=== PATIENT | male | born 1960 | race Caucasian/White ===

== ENCOUNTER 2018-11-08 17:05 | Emergency (ER) | payer BC ==
[~2018-11-08] VITALS: Ht 157.5 cm; Wt 85.0 kg
[~2018-11-08 17:05] MED LIST: ASPI-481; BP MED; LOSA25TA2
[2018-11-08 17:39] VITALS: Ht 157.5 cm; Wt 85.0 kg
--- NOTE | 2018-11-08 18:07 | ERD ---
ER Documentation Chief Complaint Chief Complaint chest pain, dizzy, double vision started norvas thursday HPI 58-year-old man complains of diplopia and blurry vision beginning Thursday (5 days ago) suddenly while driving. Patient does have a history of hypertension but was recently started on low-dose amlodipine, which he states he has been using as prescribed. He states when he tries moving his left eye outward he has worsening diplopia and has been having to cover his left eye to see properly. He denies headache or blurry vision, no slurred speech, no weakness in his arms or legs, denies chest pain or shortness of breath. ROS All systems reviewed and are negative except as per history of present illness. Medications Home Meds Reported Medications Aspirin (Baby Aspirin) 81 Mg Tab.chew 06/06/09 [Bp Med] No Conflict Check 06/06/09 Losartan Potassium* (Cozaar*) 25 Mg Tablet 06/06/09 Allergies Allergies: Coded Allergies: No Known Drug Allergies (Verified Allergy, Mild, 06/06/09) PMhx/Soc Hypertension History of Surgery: No Hx Neurological Disorder: No Hx Respiratory Disorders: No Hx Cardiac Disorders: No Hx Miscellaneous Medical Probl: Yes (HTN) Hx Alcohol Use: No Hx Substance Use: No Hx Tobacco Use: Yes (1PK/DAY) FmHx Family History: No diabetes Physical Exam Vitals Vital Signs Date Temp Pulse Resp B/P (MAP) Pulse Ox O2 O2 Flow FiO2 Time Delivery Rate 11/08/18 98.2 92 18 188/104 95 17:39 (132) Physical Exam Const: No acute distress, afebrile HEENT: Normocephalic atraumatic, no goiter, pink conjunctive a Resp: Clear to auscultation bilaterally Cardio: Regular rate and rhythm, no murmurs Abd: Soft, non tender, non distended. Normal bowel sounds Neur: Awake and alert x3, no facial asymmetry, no pronator drift. Patient has a left cranial nerve 6 palsy and cannot abduct the left eye although abduction of both eyes is preserved Psych: Normal Mood and Affect Result Diagram: 11/08/18185511/08/181855 Results 24 hrs Laboratory Tests Test 11/08/18 18:55 11/08/18 18:56 Prothrombin Time 12.2 Sec Prothrombin Time Ratio 1.0 INR International Normalized Ratio 0.89 Activated Partial Thromboplast Time 26.7 Sec White Blood Count 8.1 10^3/ul Red Blood Count 5.51 10^6/ul Hemoglobin 16.6 g/dl Hematocrit 49.3 % Mean Corpuscular Volume 89.5 fl Mean Corpuscular Hemoglobin 30.1 pg Mean Corpuscular Hemoglobin Concent 33.7 g/dl Red Cell Distribution Width 13.7 % Platelet Count 279 10^3/UL Mean Platelet Volume 10.3 fl Immature Granulocytes % 0.100 % Neutrophils % 42.1 % Lymphocytes % 44.2 % Monocytes % 9.8 % Eosinophils % 3.3 % Basophils % 0.5 % Nucleated Red Blood Cells % 0.0 /100WBC Immature Granulocytes # 0.010 10^3/ul Neutrophils # 3.4 10^3/ul Lymphocytes # 3.6 10^3/ul Monocytes # 0.8 10^3/ul Eosinophils # 0.3 10^3/ul Basophils # 0.0 10^3/ul Nucleated Red Blood Cells # 0.0 10^3/ul Sodium Level 142 mmol/L Potassium Level 4.2 mmol/L Chloride Level 105 mmol/L Carbon Dioxide Level 26 mmol/L Anion Gap 11 Blood Urea Nitrogen 12 mg/dl Creatinine 0.58 mg/dl Est Glomerular Filtrat Rate mL/min > 60 mL/min Glucose Level 103 mg/dl Calcium Level 9.5 mg/dl Total Bilirubin 0.5 mg/dl Direct Bilirubin 0.00 mg/dl Indirect Bilirubin 0.5 mg/dl Aspartate Amino Transf (AST/SGOT) 27 IU/L Alanine Aminotransferase (ALT/SGPT) 34 IU/L Alkaline Phosphatase 86 IU/L Troponin I < 0.012 ng/ml Total Protein 8.1 g/dl Albumin 4.5 g/dl Globulin 3.60 g/dl Albumin/Globulin Ratio 1.25 Lipase 78 U/L Ethyl Alcohol Level < 10.0 mg/dl Current Medications Medications Dose Sig/D[place]ton Start Time Status Last (Trade) Ordered Route PRN Stop Time Admin Dose Reason Admin Sodium 1,000 ml @ Q1H STAT 11/08/18 DC 11/08/18 Chloride 1,000 mls/hr IV 18:27 18:52 11/08/18 19:26 Enalaprilat 1.25 mg ONCE ONCE 11/08/18 DC 6/17/19 (Vasotec Iv) IV 18:30 19:00 11/08/18 18:31 IV Flush 10 ml STK-MED 11/08/18 DC 11/08/18 (NS 10 ml) ONCE .ROUTE 19:36 19:48 11/08/18 19:37 Sodium 100 ml @ ud STK-MED 11/08/18 DC 11/08/18 Chloride ONCE .ROUTE 19:36 19:48 11/08/18 19:37 Iohexol 100 ml @ ud STK-MED 11/08/18 DC 11/08/18 ONCE .ROUTE 19:36 19:49 11/08/18 19:37 Lorazepam 0.5 mg ONCE ONCE 11/08/18 (Ativan) IV 22:00 11/08/18 22:01 Procedures/MDM IV line was established patient was placed on teletypesetter monitor rhythm strip revealed a sinus rhythm at about 90 bpm with upright P and T waves. Patient was afebrile EKG performed, read by me: 93 bpm, normal sinus rhythm, normal axis, no acute ST segment changes, narrow QRS complex, with good R-wave progression in precordial leads. I administered 1 L normal saline IV and enalapril 1.25 mg IV x1 for hypertension. Chest x-ray was deferred as patient just had one as an outpatient a couple days ago. CT scan of the brain was performed was negative for bleed mass or shift CTA of the cerebrum and neck, IMPRESSION: CTA Head 1. No arterial thrombus or vessel occlusion. 2. Mild to moderate right supraclinoid carotid artery stenosis. 3. No intracranial aneurysm. CTA Neck 1. There is 40% right internal carotid artery stenosis by NASCET criteria. 2. No significant left internal carotid artery stenosis by NASCET criteria. CBC and electrolytes were normal, liver function tests were normal, troponin was negative I administered aspirin 324 mg p.o. for neuro protective measures. Patient will be admitted to telemetry setting for possible stroke or cranial nerve problem. Patient will also require neurology consultation. Departure Diagnosis: Primary Impression: Cranial nerve palsy Laterality: left Qualified Codes: H49.22 - Sixth [abducent] nerve palsy, left eye Additional Impressions: Stroke CVA mechanism: unspecified Qualified Codes: I63.9 - Cerebral infarction, unspecified HTN (hypertension) Hypertension type: essential hypertension Qualified Codes: I10 - Essential (primary) hypertension Condition: Fair ZOHRABIAN,JULIAN MD Nov 08, 2018 18:07
[2018-11-08] MEDS ORDERED: SOD CHLORIDE 0.9% 1,000 ML IV STA (18:27)
[2018-11-08] MEDS ORDERED: ENALAPRILAT 1.25 MG INJ IV ONE (18:30)
[2018-11-08] MEDS ORDERED: SOD CHLORIDE 0.9% 100 ML ONE (19:36)
[2018-11-08] MEDS ORDERED: IOHEXOL 100 ML ONE (19:36)
[2018-11-08] MEDS ORDERED: ASPIRIN 81 MG TAB PO ONE (22:00)
[2018-11-08] MEDS ORDERED: LORAZEPAM 2 MG INJ IV ONE (22:00)
[2018-11-08 22:47] VITALS: BP 179/84; PULSE 85; RESP 18
--- NOTE | 2018-11-08 23:01 | QN ---
Documentation Comment I came to see the patient but was informed by the ED physician that the patient left against medical advice. Patient signed out AMA. I was not able to see the patient as he left AMA. LOU DAVIS Nov 08, 2018 23:01
== END 2018-11-08 22:48 | disposition left against medical advice (07) ==
LOC: E/R 17:05 → CANRESERV 22:38 → CANBEDREQ 22:45 → E/R 22:48
DX: H49.22 Sixth [abducent] nerve palsy, left eye (principal); I10 Essential (primary) hypertension; F17.210 Nicotine dependence, cigarettes, uncomplicated; I63.9 Cerebral infarction, unspecified; Z79.82 Long term (current) use of aspirin
CPT/HCPCS: 36415; 70450; 70496; 70498; 80053; 80307; 83690; 84484; 85025; 85610; 85730; 93005; 96374; J7030; Q9967; Z7502; Z7610; J2060

== ENCOUNTER 2018-11-09 14:46 | Emergency (ER) | payer BC ==
[~2018-11-09] VITALS: Ht 162.6 cm; Wt 83.7 kg
[2018-11-09 14:52] VITALS: Ht 162.6 cm; Wt 83.7 kg
--- NOTE | 2018-11-09 18:02 | ERD ---
ER Documentation Chief Complaint Chief Complaint seen last night, left AMA, sent back to ER by television script writer HPI The patient is a 58-year-old male, presenting to the ER because of double vision from the left eye when he looks at far object for 6 days. He was seen in the ER yesterday and had a negative brain CT/brain and neck CTA. He was offered admission but left against medical advised. He went to see the television script writer today who sent him back to the ER for further evaluation. He denies headache, facial pain, neck pain, dysarthria, chest pain, dyspnea, abdominal pain, vomiting, weakness. He smokes, drinks socially Past Medical History: Hypertension Surgical history: None ROS All systems reviewed and are negative except as per history of present illness. Medications Home Meds Discontinued Reported Medications Aspirin (Baby Aspirin) 81 Mg Tab.chew 06/06/09 [Bp Med] No Conflict Check 06/06/09 Losartan Potassium* (Cozaar*) 25 Mg Tablet 06/06/09 Allergies Allergies: Coded Allergies: No Known Drug Allergies (Verified Allergy, Mild, 11/08/18) PMhx/Soc History of Surgery: No Hx Neurological Disorder: No Hx Respiratory Disorders: No Hx Cardiac Disorders: Yes (htn) Hx Psychiatric Problems: No Hx Miscellaneous Medical Probl: Yes (HTN) Hx Alcohol Use: No Hx Substance Use: No Hx Tobacco Use: Yes (1PK/DAY) Smoking Status: Current every day smoker Physical Exam Vitals Vital Signs Date Temp Pulse Resp B/P (MAP) Pulse Ox O2 O2 Flow FiO2 Time Delivery Rate 11/09/18 97.7 94 20 166/102 99 Room Air 18:38 (123) 11/09/18 98.2 91 18 160/96 98 14:52 (117) Physical Exam Const: No acute distress. Head: Atraumatic. Eyes: Normal Conjunctiva. Unable to adduct the left eye ENT: Normal External Ears, Nose and Mouth. Neck: Full range of motion. No meningismus. Resp: Clear to auscultation bilaterally. Cardio: Regular rate and rhythm. Abd: Soft, non distended, normal bowel sounds, non tender. Skin: No petechiae or rashes. Back: No midline or flank tenderness. Ext: No cyanosis, or edema. Neur: Awake and alert. No focal deficit Psych: Normal Mood and Affect. Procedures/MDM MEDICAL MAKING DECISION: The patient is a 58-year-old male, presenting with acute left 6th nerve palsy, is stable outpatient follow-up The differential diagnoses considered include but are not limited to [facility] pathology, 3rd nerve palsy Departure Diagnosis: Primary Impression: Sixth nerve palsy of left eye Condition: Good Comments I discussed the findings with the patient. I have given him the list of the local ophthalmologists I advised the patient to follow-up with fall intern tomorrow for reevaluation and return if any concern. Disclaimer: Inadvertent spelling and grammatical errors are likely due to EHR/dictation software use and do not reflect on the overall quality of patient care. Also, please note that the electronic time recorded on this note does not necessarily reflect the actual time of the patient encounter. OPAL HENDERSON MD Nov 09, 2018 18:02
[2018-11-09 18:38] VITALS: BP 166/102; PULSE 94; RESP 20
== END 2018-11-09 18:38 | disposition home or self-care (01) ==
LOC: E/R 14:46
DX: G58.8 Other specified mononeuropathies (principal); I10 Essential (primary) hypertension; F17.210 Nicotine dependence, cigarettes, uncomplicated; Z79.82 Long term (current) use of aspirin
CPT/HCPCS: 99282